=== PATIENT | female | born 1985 | race Caucasian/White ===

== ENCOUNTER 2017-04-17 03:42 | Emergency (ER) | payer SELFPAY ==
[~2017-04-17] VITALS: Ht 160 cm; Wt 69.0 kg
[2017-04-17] MEDS ORDERED: ACETAMINOPHEN 325MG TABLET PO ONE (09:45)
[2017-04-17 11:18] VITALS: BP 117/70
== END 2017-04-17 11:23 | disposition home or self-care (01) ==
LOC: ER 07:23
DX: S09.90XA Unspecified injury of head, initial encounter (principal); V43.62XA Car passenger injured in collision with other type car in traffic accident, initial encounter; Y93.89 Activity, other specified; Y92.488 Other paved roadways as the place of occurrence of the external cause
CPT/HCPCS: 70450; 81025; 99284; Z7610